=== PATIENT | male | born 1990 | race Caucasian/White ===

== ENCOUNTER 2016-12-27 23:10 | Emergency (ER) | payer OTHER ==
[~2016-12-27] VITALS: Wt 72.5 kg
[~2016-12-27 23:10] MED LIST: ACET500C5 PO; ELEC100080 PO; ONDA4TAB35 PO; ONDA4TAB8 PO
[2016-12-28] MEDS ORDERED: ONDANSETRON (ODT) 4 MG TAB ODT STA (02:36)
[2016-12-28] MEDS ORDERED: ONDA4TAB14 PO (03:14)
[2016-12-28 03:34] VITALS: BP 135/74; PULSE 60; RESP 17; TEMP 97.2
--- NOTE | 2016-12-28 06:10 | ERD ---
ER Documentation Chief Complaint Date/Time DATE: 12/28/16 TIME: 06:06 Chief Complaint NAUSEA/VOMITING/DIARRHEA/MALAISE/DECREASE APPITITE SINCE AM HPI 26-year-old male complaining of nausea, vomiting, and diarrhea since earlier today. She had multiple episodes of vomiting, and 2 episodes diarrhea. The diarrhea is nonbloody, and the vomit is nonbloody and nonbilious. Patient also reports chills, malaise, and decreased appetite. 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 Denies shortness of breath. Denies fever. ROS All systems reviewed and are negative except as per history of present illness. Medications Home Meds Active Scripts Ondansetron (Ondansetron Odt) 4 Mg Tab.rapdis, 4 MG PO Q6H Y for NAUSEA AND/OR VOMITING, #10 TAB Prov:SANGEETA TOWNSEND. 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 12/28/16 Electrolyte,Oral (Pedialyte) 1,000 Ml Solution, 100 ML PO Q6 Y for DIARRHEA for 14 Days, #1000 ML Prov:JONNY SANON PA-C 06/03/16 Acetaminophen* (Tylophen*) 500 Mg Capsule, 1 CAP PO Q6H Y for PAIN AND OR ELEVATED TEMP, #20 CAP Prov:JONNY SANON PA-C 06/03/16 Ondansetron Hcl* (Zofran*) 4 Mg Tablet, 4 MG PO Q6H for NAUSEA AND/OR VOMITING, #30 TAB Prov:JONNY SANON PA-C 06/03/16 Ondansetron Hcl* (Zofran* ODT) 4 mg -ODT Tab.disper, 4 MG PO Q6 Y for NAUSEA AND /OR VOMITING, #10 TAB Prov:ANN NELSON PA-C 10/31/15 Allergies Allergies: Coded Allergies: amoxicillin (Verified Allergy, Intermediate, SWELLING, 06/03/16) PMhx/Soc History of Surgery: No Anesthesia Reaction: No Hx Neurological Disorder: No Hx Respiratory Disorders: No Hx Cardiac Disorders: No Hx Psychiatric Problems: No Hx Miscellaneous Medical Probl: No Hx Alcohol Use: Yes Hx Substance Use: No Hx Tobacco Use: No Physical Exam Vitals Vital Signs Date Time Temp Pulse Resp B/P Pulse Ox O2 Delivery O2 Flow Rate FiO2 12/28/16 03:34 97.2 60 17 135/74 100 Room Air 12/27/16 23:20 99.4 100 18 142/78 98 Physical Exam General: Well-developed, well-nourished, conscious and coherent, in no distress Skin: Warm and dry without rash, good texture and turgor Head: Normocephalic without evidence of trauma Eyes: Sclera and conjunctivae normal; pupils equal, round, and reactive to light; extraocular movements are intact Neck: Supple without meningismus or adenopathy. Carotids are equal. Trachea midline. No bruits or JVD Chest: Normal AP diameter. Good expansion without retractions. Nontender. Lungs are clear to auscultate bilaterally with good tidal volume Heart: Regular rate and rhythm. No murmur, rub, or gallops heard Abdomen: Soft and diffusely tender without masses, guarding, or rebound. Bowel sounds are active. No hepatosplenomegaly Back: Without spinal or CVA tenderness Pelvis: Nontender to palpation and stable to compression Extremities: Full range of motion. Good strength bilaterally. No clubbing, cyanosis, or edema. Peripheral pulses are intact. Sensation intact Neuro: Alert and oriented 4, GCS 15. Cranial nerves grossly intact. Motor and sensory exams nonfocal. Moves all extremities. Speech clear. Gait normal Results 24 hrs Current Medications Medications (Trade) Dose Ordered Sig/Ryan Route PRN Reason Start Time Stop Time Status Last Admin Dose Admin Ondansetron HCl (Zofran Odt) 4 mg ONCE STAT ODT 12/28/16 02:36 12/28/16 02:38 DC 12/28/16 03:00 Procedures/MDM Patient is afebrile, does not have any abdominal tenderness on palpation. I doubt acute appendicitis, cholecystitis or other acute abdomen. Patient's symptoms is consistent with that of viral gastroenteritis. Patient does have a repeat exposures. Patient does not have any active vomiting, is able to maintain by mouth fluid intake. Patient appears well, stable for discharge and outpatient management. Medical decision making shared with patient and family. Education provided to patient and family. Patient and family expressed understanding of the plan. Medications on discharge: Zofran Follow-up: Primary care provider in 2-3 days or return to ED if worse. Disclaimer: Inadvertent spelling and grammatical errors are likely due to EHR/ dictation software use and do not reflect on the overall quality of patient care. Also, please note that the electronic time recorded on this note does not necessarily reflect the actual time of the patient encounter. Departure Diagnosis: Primary Impression: Viral gastroenteritis Condition: Good Patient Instructions: Self-Care for Vomiting and Diarrhea Referrals: [facility]1983 CLINICS YOU HAVE RECEIVED A MEDICAL SCREENING EXAM AND THE RESULTS INDICATE THAT YOU DO NOT HAVE A CONDITION THAT REQUIRES URGENT TREATMENT IN THE EMERGENCY DEPARTMENT. FURTHER EVALUATION AND TREATMENT OF YOUR CONDITION CAN WAIT UNTIL YOU ARE SEEN IN YOUR DOCTORS OFFICE WITHIN THE NEXT 1-2 DAYS. IT IS YOUR RESPONSIBILITY TO MAKE AN APPOINTMENT FOR FOLOW-UP CARE. IF YOU HAVE A PRIMARY DOCTOR --you should call your primary doctor and schedule an appointment IF YOU DO NOT HAVE A PRIMARY DOCTOR YOU CAN CALL OUR PHYSICIAN REFERRAL HOTLINE AT IF YOU CAN NOT AFFORD TO SEE A PHYSICIAN YOU CAN CHOSE FROM THE FOLLOWING [facility] [facility] [address] [facility]. [facility] [address] [facility] [address] [facility]. [facility] [address] [facility] [address] [facility] [facility] [address] Additional Instructions: Call your primary care doctor TOMORROW for an appointment during the next 2-3 days.See the doctor sooner or return here if your condition worsens before your appointment time. SANGEETA TOWNSEND NP Dec 28, 2016 06:10
== END 2016-12-28 03:36 | disposition home or self-care (01) ==
LOC: FTE 23:10
DX: A08.4 Viral intestinal infection, unspecified (principal)
CPT/HCPCS: Z7502; Z7610; 99283

== ENCOUNTER 2017-04-12 13:12 | Emergency (ER) | payer OTHER ==
[~2017-04-12] VITALS: Ht 165.1 cm; Wt 64.5 kg
[~2017-04-12 13:12] MED LIST changes: +ONDA4TAB14 PO
[2017-04-12 13:14] VITALS: Ht 165.1 cm; Wt 64.5 kg
--- NOTE | 2017-04-12 14:59 | ERD ---
ER Documentation Chief Complaint Chief Complaint several finger injury by dog bite about 20 minutes ago HPI 26-year-old male presents with multiple injuries to the hands and arms from a dog bite that occurred just prior to arrival. The patient states that he was doing with his sister's dog trying to handle and cheese and had bitten him on the hands and his forearms. Patient has sharp pain to both of his hands. it took off the nail of the right index finger, and also cut him on multiple digits as well as his arms. The patient's last tetanus shot is unknown. He states that the dog's vaccines are up-to-date. ROS All systems reviewed and are negative except as per history of present illness. Medications Home Meds Active Scripts Ibuprofen* (Motrin*) 600 Mg Tab, 600 MG PO Q6, #30 TAB Prov:ANN NELSON PA-C 04/12/17 Doxycycline Hyclate* (Doxycycline Hyclate*) 100 Mg Tablet.dr, 100 MG PO BID for 7 Days, TAB Prov:ANN NELSON PA-C 04/12/17 Clindamycin Hcl* (Clindamycin Hcl*) 300 Mg Capsule, 300 MG PO TID for 7 Days, CAP Prov:ANN NELSON PA-C 04/12/17 Ondansetron (Ondansetron Odt) 4 Mg Tab.rapdis, 4 MG PO Q6H Y for NAUSEA AND/OR VOMITING, #10 TAB Prov:SANGEETA TOWNSEND RELEASE COORDINATOR 12/28/16 Electrolyte,Oral (Pedialyte) 1,000 Ml Solution, 100 ML PO Q6 Y for DIARRHEA for 14 Days, #1000 ML Prov:JONNY SANON PA-C 06/03/16 Acetaminophen* (Tylophen*) 500 Mg Capsule, 1 CAP PO Q6H Y for PAIN AND OR ELEVATED TEMP, #20 CAP Prov:JONNY SANON PA-C 06/03/16 Ondansetron Hcl* (Zofran*) 4 Mg Tablet, 4 MG PO Q6H for NAUSEA AND/OR VOMITING, #30 TAB Prov:JONNY SANON PA-C 06/03/16 Ondansetron Hcl* (Zofran* ODT) 4 mg -ODT Tab.disper, 4 MG PO Q6 Y for NAUSEA AND /OR VOMITING, #10 TAB Prov:ANN NELSON PA-C 10/31/15 Allergies Allergies: Coded Allergies: amoxicillin (Verified Allergy, Intermediate, SWELLING, 06/03/16) PMhx/Soc History of Surgery: No Anesthesia Reaction: No Hx Neurological Disorder: No Hx Respiratory Disorders: No Hx Cardiac Disorders: No Hx Psychiatric Problems: No Hx Miscellaneous Medical Probl: No Hx Alcohol Use: Yes Hx Substance Use: No Hx Tobacco Use: No Physical Exam Vitals Vital Signs Date Time Temp Pulse Resp B/P Pulse Ox O2 Delivery O2 Flow Rate FiO2 04/12/17 13:14 98.2 82 20 124/87 97 Physical Exam General: Well-developed, well-nourished. The patient appears in no acute distress. HEENT: Head is normocephalic, atraumatic. No scleral icterus. Neck: Supple. Nontender. Lungs: Clear to auscultation. Normal air movement. Heart: Regular rate and rhythm. S1 and S2 are normal. No murmurs, gallops, or rubs. Abdomen: Soft, nontender, nondistended. Bowel sounds are normoactive. Extremities: No clubbing or cyanosis. Normal pulses. Moving extremities x 4. No weakness. Neurologic: Alert and oriented 3. No focal deficits. Skin: Superficial abrasion lacerations on bilateral forearms. Superficial abrasion on the right thumb, complete avulsion of the right index finger nail. Lacerations that are superficial to bilateral palms, as well as his left thumb and left index finger. Results 24 hrs Current Medications Medications (Trade) Dose Ordered Sig/Ryan Route PRN Reason Start Time Stop Time Status Last Admin Dose Admin Diphtheria/ Tetanus/Acell Pertussis (Adacel) 0.5 ml ONCE ONCE IM* 04/12/17 15:00 04/12/17 15:01 DC 04/12/17 15:22 Acetaminophen/ Hydrocodone Bitart (Winnebago (10/325)) 1 tab ONCE ONCE PO 04/12/17 15:00 04/12/17 15:01 DC 04/12/17 15:22 Doxycycline Hyclate (Vibramycin) 100 mg ONCE ONCE PO 04/12/17 15:00 04/12/17 15:01 DC 04/12/17 15:41 Clindamycin HCl (Cleocin) 300 mg ONCE ONCE PO 04/12/17 15:00 04/12/17 15:01 DC 04/12/17 15:41 DIAGNOSTIC IMAGING REPORT Patient: TARSHA VUONG : 1990 Age: 26 Sex: M MR #: [id number] DOS: 04/12/17 1450 Ordering MD: ANN NELSON PA-C Location: [facility]TE Room/Bed: PROCEDURE: XR Right Hand CLINICAL INDICATION: Dog bite to digits 1-2 TECHNIQUE: PA, oblique, and lateral radiographs were submitted. COMPARISON: None FINDINGS: Osseous structures: appear well mineralized and intact with no fracture or destructive process identified. Joint spaces: are well maintained, with no significant spurring, erosion or joint effusion evident. Soft tissues: There is bandage artifact projecting over the thumb and second finger with soft tissue irregularity over the distal index finger. IMPRESSION: 1. Probable laceration involving the distal index finger. 2. Otherwise, unremarkable right hand series. Physician Melisa Date Time Electronically viewed and signed by Physician Melisa on 04/12/2017 16:49 RH/ CC: ANN NELSON PA-C Procedures/MDM ER course: Patient's tetanus was updated he was given Winnebago for pain. For antimicrobial coverage she was given doxycycline and clindamycin p.o. Wound care: Thorough irrigation was done to all wounds and lacerations. The right index finger has a missing nail, was then irrigated thoroughly and Xeroform dressing was applied. Medical decision makin-year-old male presents with multiple abrasion/ lacerations with complete nail avulsion of the right index finger from a dog bite. An x-ray was obtained, there is no evidence of a fracture of the right hand. Wound care was done, and x-rays were obtained. She is allergic to amoxicillin and was given doxycycline and clindamycin for home. Wound check is to be done in 2 days. Departure Diagnosis: Primary Impression: Dog bite Additional Impression: Nail avulsion, finger Condition: Good ANN NELSON PA-C Apr 12, 2017 14:59
[2017-04-12] MEDS ORDERED: DOXYCYCLINE 100 MG TAB PO ONE (15:00)
[2017-04-12] MEDS ORDERED: CLINDAMYCIN 300 MG CAP PO ONE (15:00)
[2017-04-12] MEDS ORDERED: HYDROCODONE/APAP (10/325) TAB PO ONE (15:00)
[2017-04-12] MEDS ORDERED: DIPHTH/TET/ACEL PERTUSS (ADULT) 0.5 ML VIAL IM* ONE (15:00)
[2017-04-12] MEDS ORDERED: DOXY100T20 PO (15:43)
[2017-04-12] MEDS ORDERED: IBUP-1542 PO (15:43)
[2017-04-12] MEDS ORDERED: CLIN-73 PO (15:43)
--- NOTE | 2017-04-12 16:49 | RADRPT ---
PROCEDURE: XR Right Hand CLINICAL INDICATION: Dog bite to digits 1-2 TECHNIQUE: PA, oblique, and lateral radiographs were submitted. COMPARISON: None FINDINGS: Osseous structures: appear well mineralized and intact with no fracture or destructive process iden tified. Joint spaces: are well maintained, with no significant spurring, erosion or joint effusion evident. Soft tissues: There is bandage artifact projecting over the thumb and second finger with soft tissue irregularity over the distal index finger. IMPRESSION: 1. Probable laceration involving the distal index finger. 2. Otherwise, unremarkable right hand series. Physician Melisa Date Time Electronically viewed and signed by Physician Melisa on 04/12/2017 16:49 /
== END 2017-04-12 17:57 | disposition home or self-care (01) ==
LOC: FTE 13:12
DX: S61.310A Laceration without foreign body of right index finger with damage to nail, initial encounter (principal); W54.0XXA Bitten by dog, initial encounter; Y92.9 Unspecified place or not applicable; Z23 Encounter for immunization
CPT/HCPCS: 73130; 90715; Z7502; Z7610; 99284

== ENCOUNTER 2017-04-14 12:06 | Emergency (ER) | payer OTHER ==
[~2017-04-14] VITALS: Wt 67.9 kg
[~2017-04-14 12:06] MED LIST changes: +CLIN-73 PO; +DOXY100T20 PO; +IBUP-1542 PO
--- NOTE | 2017-04-14 12:49 | ERD ---
ER Documentation Chief Complaint Chief Complaint WOUND CHECK ON FINGERS S/P DOG BITE HPI This is a 26-year-old male who presents the emergency department today for a wound check after dog bite that he sustained a couple of days ago. States he is taking his medication as prescribed. Denies any fevers or chills. ROS All systems reviewed and are negative except as per history of present illness. Medications Home Meds Active Scripts Ibuprofen* (Motrin*) 600 Mg Tab, 600 MG PO Q6, #30 TAB Prov:ANN NELSON PA-C 04/12/17 Doxycycline Hyclate* (Doxycycline Hyclate*) 100 Mg Tablet.dr, 100 MG PO BID for 7 Days, TAB Prov:ANN NELSON PA-C 04/12/17 Clindamycin Hcl* (Clindamycin Hcl*) 300 Mg Capsule, 300 MG PO TID for 7 Days, CAP Prov:ANN NELSON PA-C 04/12/17 Ondansetron (Ondansetron Odt) 4 Mg Tab.rapdis, 4 MG PO Q6H Y for NAUSEA AND/OR VOMITING, #10 TAB Prov:SANGEETA TOWNSEND NP 12/28/16 Electrolyte,Oral (Pedialyte) 1,000 Ml Solution, 100 ML PO Q6 Y for DIARRHEA for 14 Days, #1000 ML Prov:JONNY SANON PA-C 06/03/16 Acetaminophen* (Tylophen*) 500 Mg Capsule, 1 CAP PO Q6H Y for PAIN AND OR ELEVATED TEMP, #20 CAP Prov:JONNY SANON PA-C 06/03/16 Ondansetron Hcl* (Zofran*) 4 Mg Tablet, 4 MG PO Q6H for NAUSEA AND/OR VOMITING, #30 TAB Prov:JONNY SANON PA-C 06/03/16 Ondansetron Hcl* (Zofran* ODT) 4 mg -ODT Tab.disper, 4 MG PO Q6 Y for NAUSEA AND /OR VOMITING, #10 TAB Prov:ANN NELSON PA-C 10/31/15 Allergies Allergies: Coded Allergies: amoxicillin (Verified Allergy, Intermediate, SWELLING, 06/03/16) PMhx/Soc History of Surgery: No Anesthesia Reaction: No Hx Neurological Disorder: No Hx Respiratory Disorders: No Hx Cardiac Disorders: No Hx Psychiatric Problems: No Hx Miscellaneous Medical Probl: No Hx Alcohol Use: Yes Hx Substance Use: No Hx Tobacco Use: No Physical Exam Vitals Vital Signs Date Time Temp Pulse Resp B/P Pulse Ox O2 Delivery O2 Flow Rate FiO2 04/14/17 12:12 97.2 80 17 132/83 98 Physical Exam Const: NAD Head: Atraumatic Eyes: Normal Conjunctiva ENT: Normal External Ears, Nose and Mouth. Neck: Full range of motion..~ No meningismus. Resp: Clear to auscultation bilaterally Cardio: Regular rate and rhythm, no murmurs Abd: Soft, non tender, non distended. Normal bowel sounds Skin: No petechiae or rashes. Abrasions bilateral forearms. Evidence of dog bites. EXT right hand index finger with evidence of nail avulsion. Right thumb with evidence of macerated skin. Left hand third finger with evidence of macerated skin. No erythema or warmth or purulent drainage. Pulses 2+. Distal neurovascularly intact. Neur: Awake and alert Psych: Normal Mood and Affect Procedures/MDM This is a 26-year-old male who presents the emergency department today for a wound check after wound that he sustained 2 days ago after being bit by his sister's dog. Patient did have a nail avulsion. His wounds were cleaned at the time. He was given an updated tetanus. His x-rays were negative. He was given a prescription for doxycycline for home. He is afebrile and otherwise well-appearing. He states he is taking his antibiotics. Wounds were cleaned again today. There is some skin that is macerated have explained to the patient that he does need to allow the area to air out and dry. He is instructed to keep the wound clean. Low suspicion for sepsis, cellulitis, deep space infection. Patient was given a work note for another couple of days. At this time the patient is stable for discharge and outpatient management. Patient should follow up with their PCP in the next 1-2 days. They may return to the emergency department sooner for any persistent or worsening of symptoms. Patient understood and agreed with the plan. Departure Diagnosis: Primary Impression: Encounter for wound re-check Condition: Fair Patient Instructions: Wound Care, Wound Check, Lac F/U (No Infection) Referrals: [facility] YOU HAVE RECEIVED A MEDICAL SCREENING EXAM AND THE RESULTS INDICATE THAT YOU DO NOT HAVE A CONDITION THAT REQUIRES URGENT TREATMENT IN THE EMERGENCY DEPARTMENT. FURTHER EVALUATION AND TREATMENT OF YOUR CONDITION CAN WAIT UNTIL YOU ARE SEEN IN YOUR DOCTORS OFFICE WITHIN THE NEXT 1-2 DAYS. IT IS YOUR RESPONSIBILITY TO MAKE AN APPOINTMENT FOR FOLOW-UP CARE. IF YOU HAVE A PRIMARY DOCTOR --you should call your primary doctor and schedule an appointment IF YOU DO NOT HAVE A PRIMARY DOCTOR YOU CAN CALL OUR PHYSICIAN REFERRAL HOTLINE AT IF YOU CAN NOT AFFORD TO SEE A PHYSICIAN YOU CAN CHOSE FROM THE FOLLOWING [facility] [address] [facility]. [facility] [address] [facility] [address] [facility] [address] [facility]. [facility] [address] [facility]. [facility]. [address] Additional Instructions: Call your primary care doctor TOMORROW for an appointment during the next 1-2 days.See the doctor sooner or return here if your condition worsens before your appointment time. Continue taking your antibiotics as prescribed. Take Tylenol Motrin for pain. Keep wound clean and dry. MIGUEL ÁNGEL BAUM PA-C Apr 14, 2017 12:49
== END 2017-04-14 13:05 | disposition home or self-care (01) ==
LOC: FTE 12:06
DX: Z48.01 Encounter for change or removal of surgical wound dressing (principal)
CPT/HCPCS: 99281

== ENCOUNTER 2017-04-16 10:29 | Emergency (ER) | payer OTHER ==
[~2017-04-16] VITALS: Ht 162.6 cm; Wt 67.8 kg
[2017-04-16 10:31] VITALS: Ht 162.6 cm; Wt 67.8 kg
--- NOTE | 2017-04-16 11:34 | ERD ---
ER Documentation Chief Complaint Chief Complaint RECHECK ON RT HAND DOG BITE HPI This is a 26-year-old male who presents to the emergency department today for a wound check of the dog bite that he sustained last week. Patient states he was instructed to return follow-up. Patient states that he is feeling much better. Denies any fevers or chills. States he is taking antibiotics. ROS All systems reviewed and are negative except as per history of present illness. Medications Home Meds Active Scripts Ibuprofen* (Motrin*) 600 Mg Tab, 600 MG PO Q6, #30 TAB Prov:ANN NELSON PA-C 04/12/17 Doxycycline Hyclate* (Doxycycline Hyclate*) 100 Mg Tablet.dr, 100 MG PO BID for 7 Days, TAB Prov:ANN NELSON PA-C 04/12/17 Clindamycin Hcl* (Clindamycin Hcl*) 300 Mg Capsule, 300 MG PO TID for 7 Days, CAP Prov:ANN NELSON PA-C 04/12/17 Ondansetron (Ondansetron Odt) 4 Mg Tab.rapdis, 4 MG PO Q6H Y for NAUSEA AND/OR VOMITING, #10 TAB Prov:SANGEETA TOWNSEND VEGETABLE II FARMWORKER 12/28/16 Electrolyte,Oral (Pedialyte) 1,000 Ml Solution, 100 ML PO Q6 Y for DIARRHEA for 14 Days, #1000 ML Prov:JONNY SANON PA-C 06/03/16 Acetaminophen* (Tylophen*) 500 Mg Capsule, 1 CAP PO Q6H Y for PAIN AND OR ELEVATED TEMP, #20 CAP Prov:JONNY SANON PA-C 06/03/16 Ondansetron Hcl* (Zofran*) 4 Mg Tablet, 4 MG PO Q6H for NAUSEA AND/OR VOMITING, #30 TAB Prov:JONNY SANON PA-C 06/03/16 Ondansetron Hcl* (Zofran* ODT) 4 mg -ODT Tab.disper, 4 MG PO Q6 Y for NAUSEA AND /OR VOMITING, #10 TAB Prov:ANN NELSON PA-C 10/31/15 Allergies Allergies: Coded Allergies: amoxicillin (Verified Allergy, Intermediate, SWELLING, 06/03/16) PMhx/Soc History of Surgery: No Anesthesia Reaction: No Hx Neurological Disorder: No Hx Respiratory Disorders: No Hx Cardiac Disorders: No Hx Psychiatric Problems: No Hx Miscellaneous Medical Probl: No Hx Alcohol Use: Yes (OCCAS) Hx Substance Use: No Hx Tobacco Use: No Physical Exam Vitals Vital Signs Date Time Temp Pulse Resp B/P Pulse Ox O2 Delivery O2 Flow Rate FiO2 04/16/17 10:31 97.4 77 18 128/75 99 Physical Exam Const: NAD Head: Atraumatic Eyes: Normal Conjunctiva ENT: Normal External Ears, Nose and Mouth. Neck: Full range of motion..~ No meningismus. Resp: Clear to auscultation bilaterally Cardio: Regular rate and rhythm, no murmurs Abd: Soft, non tender, non distended. Normal bowel sounds Skin: evidence of healing lacerations. No erythema or warmth. No purulent drainage. Back: No midline or flank tenderness Ext: No cyanosis, or edema active range of motion. Evidence of healing. Neur: Awake and alert Psych: Normal Mood and Affect Procedures/MDM This is a 26-year-old male who presents the emergency department today for a wound check of wounds he sustained from a dog bite a few days ago. I did see this patient 2 days ago for a wound check sustaining a dog bite. Patient indicated that he is currently taking his antibiotics. He reports feeling significantly better today. He is afebrile and otherwise well-appearing. Low suspicion for sepsis, deep space tracking infection, cellulitis. Patient wounds are well approximated and healing well. His complete nail avulsion is feeling much better. Patient may continue taking his antibiotics as prescribed. He may continue taking his Tylenol or Motrin for pain. I do not feel that he needs to return for recheck. At this time patient is stable for discharge and outpatient management. He may follow-up with his primary care physician in 1-2 days. He may return to the emergency department for any persistent or worsening symptoms. Patient understood and agreed with the plan. Departure Diagnosis: Primary Impression: Visit for wound check Condition: Fair Patient Instructions: Wound Check, Lac F/U (No Infection) Additional Instructions: Call your primary care doctor TOMORROW for an appointment during the next 1-2 days.See the doctor sooner or return here if your condition worsens before your appointment time. Continue taking your antibiotics as prescribed. Keep wounds clean and dry. MIGUEL ÁNGEL BAUM PA-C Apr 16, 2017 11:34
[2017-04-16 12:01] VITALS: BP 122/75; PULSE 66; RESP 18; TEMP 97.4
== END 2017-04-16 12:17 | disposition home or self-care (01) ==
LOC: FTE 10:29
DX: Z48.01 Encounter for change or removal of surgical wound dressing (principal)
CPT/HCPCS: 99281

== ENCOUNTER 2018-03-26 01:21 | Emergency (ER) | END 2018-03-26 03:17 | disposition home or self-care (01) ==